=== PATIENT | male | born 1965 | race Two or more races ===

== ENCOUNTER 2019-06-14 16:04 | Emergency (ER) | payer MEDICAID ==
[~2019-06-14] VITALS: Ht 170.2 cm; Wt 68.0 kg
[~2019-06-14 16:04] MED LIST: ADALAT10 MG ORAL; CRESTOR20 MG ORAL; GABAPENTIN300 MG ORAL; HUMALOG100 UNIT/4 SUBQ; HYDRALAZINE HCL50 MG ORAL; IBUPROFEN600 MG ORAL; LANTUS SOL100 UNIT/1 SUBQ; NORCO 5-325 TA1 EACH ORAL; NOVOLIN R100 UNIT/1 SUBQ; PERCOCET 5-3251 EACH ORAL; TAMSULOSIN HCL0.4 MG ORAL
--- NOTE | 2019-06-14 16:26 | NUR ---
ED Nurse Note: Js BYRNE from [facility], pt called 911 because he is "out of Seraquel and Prozac" and needed medications refill. Pt feels " down because he witnessed his partner hung himself". When asked, he denied SI/HI. He is calm and cooperative and "only asking for the medications". Admitted he used Meth yesterday. Answers questions appropriately. HR elevated upon arrival, ERMD aware. Will cont to monitor.
[2019-06-14 16:33] VITALS: BP 146/80
--- NOTE | 2019-06-14 17:15 | Emergency Room Report ---
History of Present Illness General Chief Complaint: Behavioral Complaint Source: Patient Present Illness HPI Disclaimer: Please note that this report is being documented using [employer] technology. This can lead to erroneous entry secondary to incorrect interpretation by the dictating instrument. HPI: 54-year-old male with a history of depression, insulin dependent diabetes presents for evaluation of depressive symptoms and requesting Seroquel. He states that he lost his partner approximately 2 months ago. Since then he has been at several inpatient psychiatric institutions to deal with his depression. He was started on Seroquel 200 mg twice daily and Prozac 20 mg daily. He states he has been without Seroquel for 2 days as he ran out but continues his Prozac. He is reporting feelings of hopelessness and exhaustion. He notes significant depression and feels that he might want to hurt himself but is not acted on those thoughts. He has attempted self-harm behavior in the past stating that he has intentionally cut his neck and wrists but adamantly denies any such actions today. He denies suicidal ideation or homicidal ideation at this time. Reports methamphetamine use yesterday. Denies drug or alcohol use today. He would like to speak with a psychiatrist to discuss his depression and would like his Seroquel. PMH: Depression, diabetes PSH: Reviewed Allergies: Penicillin Social Hx: Methamphetamine use yesterday Allergies: Coded Allergies: PENICILLINS (Unverified Allergy, Unknown, 06/14/19) Uncoded Allergies: PENECILLIN (Allergy, Unknown, 06/03/16) Nursing Documentation-PMH Hx Hypertension: Yes Hx Diabetes: Yes Review of Systems All Other Systems: negative except mentioned in HPI Physical Exam Vital Signs Date Time Temp Pulse Resp B/P (MAP) Pulse Ox O2 Delivery O2 Flow Rate FiO2 06/14/19 16:01 99.1 125 18 150/61 (90) 98 Room Air General: Awake and alert, anxious appearing HEENT: NC/AT. EOMI. PERRLA. Pupils are 4 mm bilaterally. Moist mucous membranes Cardiovascular: Tachycardic. S1 and S2 normal. No murmur appreciated Resp: Normal work of breathing. No cough, wheezing or crackles appreciated Abdomen: Abdomen is soft, nondistended. Nontender Skin: Intact. No abrasions, laceration or rash over the exposed skin MSK: Normal tone and bulk. Moving all extremities. No obvious deformity. Neuro: Awake and alert. Mentating appropriately. Making good eye contact. Appropriate conversation with good insight into his medical history and current situation. Moving all extremities without ataxia or tremors. Some pressured speech. Appears anxious and emotional. Reporting depression and intermittent thoughts of self-harm in order to stop his depression symptoms. Denies hallucinations. Denies homicidality Medical Decision Making Homeless Attestation Patient is a appropriate for outpatient follow-up Diagnostic Impression: Primary Impression: Medication refill Additional Impression: Depression ER Course 54-year-old male history of depression diabetes presents for evaluation of depressive symptoms and requesting refill of Seroquel. He is ran out of his medications and will provide his Seroquel as well as start a broad metabolic and infectious work-up. Patient is anxious appearing and emotional reporting significant depression. I do not believe he is actively suicidal but rather severely depressed which he admits to and has outbursts when he gets frustrated. He has no active plan to harm himself or others. He would like to speak with a psychiatrist regarding his depression and states he did not engage in any self-harm behavior, ingestion, drug or alcohol overdose but he has in the past. Admitted to using methamphetamines yesterday we will try to arrange voluntary placement for psychiatric evaluation barring any major findings on his labs Laboratory Tests Test 06/14/19 17:02 06/14/19 17:10 Urine Color Yellow Urine Appearance Clear Urine pH 7 (4.5-8.0) Urine Specific [place] 1.010 (1.005-1.035) Urine Protein 2+ (NEGATIVE) H Urine Glucose (UA) 4+ (NEGATIVE) H Urine Ketones Negative (NEGATIVE) Urine Blood Negative (NEGATIVE) Urine Nitrite Negative (NEGATIVE) Urine Bilirubin Negative (NEGATIVE) Urine Urobilinogen Normal MG/DL (0.0-1.0) Urine Leukocyte Esterase 1+ (NEGATIVE) H Urine RBC 0-2 /HPF (0 - 0) H Urine WBC 0-2 /HPF (0 - 0) Urine Squamous Epithelial Cells Occasional /LPF Urine Bacteria Occasional /HPF (NONE) Urine Opiates Screen Negative (NEGATIVE) Urine Barbiturates Screen Negative (NEGATIVE) Phencyclidine (PCP) Screen Negative (NEGATIVE) Urine Amphetamines Screen Positive (NEGATIVE) H Urine Benzodiazepines Screen Negative (NEGATIVE) Urine Cocaine Screen Negative (NEGATIVE) Urine Marijuana (THC) Screen Positive (NEGATIVE) H White Blood Count 10.7 K/UL (4.8-10.8) Red Blood Count 4.68 M/UL (4.70-6.10) L Hemoglobin 14.1 G/DL (14.2-18.0) L Hematocrit 40.2 % (42.0-52.0) L Mean Corpuscular Volume 86 FL (80-99) Mean Corpuscular Hemoglobin 30.1 PG (27.0-31.0) Mean Corpuscular Hemoglobin Concent 35.1 G/DL (32.0-36.0) Red Cell Distribution Width 10.6 % (11.6-14.8) L Platelet Count 279 K/UL (150-450) Mean Platelet Volume 6.8 FL (6.5-10.1) Neutrophils (%) (Auto) 67.6 % (45.0-75.0) Lymphocytes (%) (Auto) 21.9 % (20.0-45.0) Monocytes (%) (Auto) 6.9 % (1.0-10.0) Eosinophils (%) (Auto) 2.6 % (0.0-3.0) Basophils (%) (Auto) 1.0 % (0.0-2.0) Sodium Level 131 MMOL/L (136-145) L Potassium Level 4.2 MMOL/L (3.5-5.1) Chloride Level 96 MMOL/L (98-107) L Carbon Dioxide Level 28 MMOL/L (21-32) Anion Gap 7 mmol/L (5-15) Blood Urea Nitrogen 15 mg/dL (7-18) Creatinine 1.3 MG/DL (0.55-1.30) Estimate Glomerular Filtration Rate 57.5 mL/min (>60) Glucose Level 235 MG/DL (74-106) H Calcium Level 9.2 MG/DL (8.5-10.1) Total Bilirubin 0.8 MG/DL (0.2-1.0) Aspartate Amino Transferase (AST) 55 U/L (15-37) H Alanine Aminotransferase (ALT) 165 U/L (12-78) H Alkaline Phosphatase 104 U/L (46-116) Total Protein 8.4 G/DL (6.4-8.2) H Albumin 4.1 G/DL (3.4-5.0) Globulin 4.3 g/dL Albumin/Globulin Ratio 1.0 (1.0-2.7) Salicylates Level 2.6 ug/mL (2.8-20) L Acetaminophen Level < 2 MCG/ML (10-30) L Serum Alcohol < 3 mg/dL Reevaluation Time: 18:25 Last Vital Signs Date Time Temp Pulse Resp B/P (MAP) Pulse Ox O2 Delivery O2 Flow Rate FiO2 06/14/19 16:33 99.1 115 17 146/80 100 Room Air Reevaluation Impression Labs have returned largely within normal limits. No white count, no anemia, normal renal function. Slight elevation in LFTs though nonspecific. No evidence of urinary tract infection. Patient tested positive for amphetamines and marijuana which he admits to. No alcohol, salicylates or Tylenol. He is medically cleared for psychiatric evaluation. We continue to work on voluntary placement. 1999: Alerted by nursing staff that the patient was becoming agitated. He was screaming a nursing staff demanding to see a psychiatrist. I was able to redirect the patient and calm him though he is agitated persistently. We will give him oral Valium to calm him down while we work on placement for psychiatric evaluation. Remains medically stable and cleared for psychiatric evaluation 2049: I was called into the patient's room stating that he wanted to leave. He is frustrated that psychiatry is not available in the hospital and wanted to speak with social work however they are also unavailable at this hour. I told him that he can speak with social work and psychiatry likely in the morning but that they are not available at this time. He stated that he would rather follow -up as an outpatient. Again he denies any suicidal or homicidal thoughts and denies any plan to harm himself or others. I will refill his Seroquel for short -term but he states he has Prozac and insulin at home. I provided mental health facilities in the area for which the patient can follow-up though he states he has his own psychiatrist that he will contact. He is calling a friend to come pick him up. He is stable for outpatient follow-up Disposition: HOME, SELF-CARE Condition: Stable Scripts Quetiapine Fumarate* (SEROQUEL*) 200 Mg Tablet 200 MG ORAL BID for 14 Days, #28 TAB Prov: Jhony Puentes MD 06/14/19 Referrals: NOT CHOSEN [facility]/,REFERRING (PCP) Jhony Puentes MD Jun 14, 2019 17:15
--- NOTE | 2019-06-14 17:18 | NUR ---
ED Nurse Note: Pt gets emotional at this time, stated that he wants to speak to a psychiatrist or else he would want to hurt himself. Dr Chawla at bedside assessing pt.
--- NOTE | 2019-06-14 17:18 | NUR ---
ED Nurse Note: Also stated that he has been homeless for 6 months and staying in [facility] until 2 days ago, not clear about his housing situation.
--- NOTE | 2019-06-14 17:20 | NUR ---
ED Nurse Note: Patient's belongings placed in Psych locker #1. ( 2 bags)
[2019-06-14 17:23] LABS: EOSINOPHILS % (AUTO) 2.6 % (0.0-3.0); HEMATOCRIT 40.2 % (42.0-52.0); HEMOGLOBIN 14.1 G/DL (14.2-18.0); LYMPHOCYTES % (AUTO) 21.9 % (20.0-45.0); MEAN CORPUSCULAR VOLUME 86 FL (80-99); MONOCYTES % (AUTO) 6.9 % (1.0-10.0); NEUTROPHILS % (AUTO) 67.6 % (45.0-75.0); PLATELET COUNT 279 K/UL (150-450); RED BLOOD COUNT 4.68 M/UL (4.70-6.10); RED CELL DISTRIBUTION WIDTH 10.6 % (11.6-14.8); WHITE BLOOD COUNT 10.7 K/UL (4.8-10.8)
[2019-06-14 17:24] LABS: APPEARANCE,URINE CLEAR; BILIRUBIN, URINE NEGATIVE (NEGATIVE); GLUCOSE, URINE (UA) 4+ (NEGATIVE); KETONES,URINE NEGATIVE (NEGATIVE); LEUKOCYTE ESTERASE ,URINE 1+ (NEGATIVE); NITRITE,URINE NEGATIVE (NEGATIVE); PH,URINE 7 (4.5-8.0); PROTEIN,URINE 2+ (NEGATIVE); UROBILINOGEN,URINE NORMAL MG/DL (0.0-1.0)
[2019-06-14 17:27] LABS: COLOR,URINE YELLOW
[2019-06-14 17:28] LABS: ANION GAP 7 mmol/L (5-15); BLOOD UREA NITROGEN 15 mg/dL (7-18); CALCIUM 9.2 MG/DL (8.5-10.1); CARBON DIOXIDE 28 MMOL/L (21-32); CHLORIDE 96 MMOL/L (98-107); CREATININE 1.3 MG/DL (0.55-1.30); POTASSIUM 4.2 MMOL/L (3.5-5.1); SODIUM 131 MMOL/L (136-145)
[2019-06-14 17:32] LABS: ALANINE AMINOTRANSFERASE 165 U/L (12-78); ALBUMIN 4.1 G/DL (3.4-5.0); ALKALINE PHOSPHATASE 104 U/L (46-116); ASPARTATE AMINO TRANSFERASE 55 U/L (15-37); BILIRUBIN,TOTAL 0.8 MG/DL (0.2-1.0)
[2019-06-14 18:47] VITALS: BP 151/80
--- NOTE | 2019-06-14 18:48 | NUR ---
ED Nurse Note: Sanwich and juice given to pt at bedside.
--- NOTE | 2019-06-14 19:04 | NUR ---
ED Nurse Note: Report given to ALFA Coyne
[2019-06-14] MEDS ORDERED: QUETIAPINE FUM200 MG ORAL (20:48)
--- NOTE | 2019-06-14 20:58 | NUR ---
ED Nurse Note: After reevaluation by Dr. Puentes patient's belongings were removed from locker # 1, and given to the patient. Patient AAO x4, VSS at this time, IV was removed without complications. Patient refused to wait for paper work, walked out with steady gait, with all belongings.
[2019-06-14 21:02] VITALS: BP 151/80
== END 2019-06-14 21:04 | disposition home or self-care (01) ==
LOC: EDBD 16:04 → EMR 16:36
DX: F32.9 Major depressive disorder, single episode, unspecified (principal); E11.9 Type 2 diabetes mellitus without complications; Z88.0 Allergy status to penicillin; I10 Essential (primary) hypertension; Z79.899 Other long term (current) drug therapy
CPT/HCPCS: 36415; 80053; 80307; 81003; 85025; G0480; G0481; Z7502; 99284